=== PATIENT | female | born 1970 | race Caucasian/White ===

== ENCOUNTER 2016-07-04 09:36 | Emergency (ER) | payer OTHER ==
[2016-07-04 09:53] VITALS: BP 99/69; PULSE 73; RESP 16; TEMP 98.2; O2SAT 99
--- NOTE | 2016-07-04 10:29 | UCPHY ---
H & P Time Seen by Provider: 07/04/16 10:05 Patient Type: New HPI/ROS: HPI Sore throat. 46-year-old female by private vehicle. She complains of a sore throat which came on last Wednesday. She reports that it was worse a Wednesday and . She reports that is better now. She is concerned about strep throat and is wondering if she needs antibiotics. She is not having difficulty swallowing. No fever. No voice changes. ROS: Constitutional: No fever, no chills. No weakness. ENT: As above. No nasal congestion or rhinorrhea. Respiratory: No cough. No shortness of breath. Musculoskeletal: No back pain. No neck pain. No myalgias or arthralgias. Skin: No rashes. Neurological: No headache. Past medical history: Not significant. Social history: Here by herself. Physical Exam: General Appearance: Alert, no distress. This patient is responding to questions appropriately and in full sentences. This patient appears well- hydrated and well-nourished. Eyes: Pupils equal and round no pallor or injection. No lid edema, erythema or injection. ENT, Mouth: Mucous membranes are moist. Mild pharyngeal erythema. No edema or swelling. No asymmetry suggestive of abscess. Scant exudates on right tonsillar pillar. Neurological: Motor sensory function is grossly intact. Cranial nerves are normal. Gait is normal. Skin: Warm and dry, no rashes. Musculoskeletal: Neck is supple and nontender. No significant lymphadenopathy. Extremities are symmetrical. All joints range without pain or impingement. Psychiatric: No agitation. No depression. Database: Rapid strep-positive. EKG: Imaging: Procedures: Emergency department course: Rapid strep performed in triage. Patient informed this was positive. Discussed antibiotics in reasoning for this. She is allergic to penicillin. She will be given a prescription for azithromycin. She is declining pain medications and feels comfortable going home. Follow-up and return to Urgent Care precautions discussed. All of her questions were answered. She was discharged in good condition. Differential Diagnosis: The differential diagnosis on this patient includes but is not limited to streptococcal pharyngitis. Retropharyngeal abscess, peritonsillar abscess, tracheitis, epiglottitis unlikely. This represents a partial list of diagnoses considered. These considerations are based on history, physical exam, past history, reassessment and diagnostic testing. Smoking Status: Never smoked Constitutional: Initial Vital Signs Temperature (C) 36.8 C 07/04/16 09:49 Heart Rate 73 07/04/16 09:49 Respiratory Rate 16 07/04/16 09:49 Blood Pressure 99/69 L 07/04/16 09:49 O2 Sat (%) 99 07/04/16 09:49 O2 Delivery Mode Room Air Allergies/Adverse Reactions: Penicillins Allergy (Intermediate, Verified 07/04/16 09:54) Shellfish *RETIRED-03/07/12 Allergy (Intermediate, Verified 07/04/16 09:54) Home Medications: Medication Instructions Recorded Azithromycin [Zithromax] 250 mg PO DAILY #6 tab 07/04/16 No Known Home Meds 07/04/16 MDM/Departure - Depart Disposition: Home, Routine, Self-Care Clinical Impression: Acute streptococcal pharyngitis Condition: Good Instructions: Strep Throat (ED) Additional Instructions: Read and follow provided instructions. Follow-up with your primary care physician in 2-3 days for re-evaluation. Ibuprofen dosin mg every 6 hours with meals for the next 3 days only. Take antibiotics as prescribed through entire course of treatment. Return to the emergency department for worsening pain, fever, difficulty swallowing, voice changes or other serious concerns. Prescriptions: Azithromycin [Zithromax] 250 mg PO DAILY #6 tab Referrals: Selina Suresh MD [Primary Care Provider] - As per Instructions - PQRS PQRS Measurement: Not applicable.
== END 2016-07-04 10:33 | disposition home or self-care (01) ==
LOC: CED 09:36
DX: J02.0 Streptococcal pharyngitis (principal)
CPT/HCPCS: 87880-PO; 99203-PO; G0463-PO